=== PATIENT | male | born 1955 | race Caucasian/White ===

== ENCOUNTER → 2019-01-01 | Outpatient (CLI) | payer OTHER ==
[~2019-01-01] MED LIST: CIPR-245 PO; HYDR-653 PO; HYDR12.556 PO; LISI30TA49 PO
[2019-01-01 09:16] LABS: PLATELET COUNT, AUTOMATED 220 K/uL (150-450)
== END ==
LOC: LAB 08:56
PROVIDERS: ATTEND Surgery
DX: D47.3 Essential (hemorrhagic) thrombocythemia (principal); D72.829 Elevated white blood cell count, unspecified
CPT/HCPCS: 36415; 85025

== ENCOUNTER 2019-01-18 08:00 | Outpatient (RCR) | payer OTHER ==
[2018-11-10 08:53] VITALS: BP 134/87
--- NOTE | 2018-11-10 21:37 | [facility] ONCOLOGY NOTE ---
EVENT DATE: November 10, 2018 REFERRING PHYSICIAN Thu Roberts PA-C REASON FOR CONSULTATION Evaluation and management of leukocytosis with neutrophilia. HEMATOLOGY HISTORY The patient is a 63-year-old male who had gout, hypertension, a previous history of thrombocytosis and intermittent leukocytosis, and chronic fungal infection of the skin, especially of the lower extremities, sometimes the hand, treated before with antifungal treatment. Patient during his followup with his primary care physician was found to have a high white count. His CBC on the September showed white count 25.4, hemoglobin 14.3, hematocrit 44.4, platelets 460,000. Absolute neutrophil count was 21.8 while other differential counts were normal except for mild elevation of the absolute basophil at 0.5. There were a few atypical lymphocytes and some enucleated RBCs. Patient denies any constitutional symptoms. PAST MEDICAL HISTORY 1. Hypertension. 2. Gout. 3. Thrombocytosis. 4. Leukocytosis. PAST SURGICAL HISTORY 1. Gangrene removal from the right wrist. 2. Bone marrow biopsy 20 years ago for thrombocytosis and, as per patient, was benign. FAMILY HISTORY Paternal grandmother had pancreatic cancer. Mother had leukemia. Father had brain cancer. Paternal aunt had breast cancer. SOCIAL HISTORY Patient is with no children. 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 Denies any abuse of tobacco, but he smokes cannabis. He drinks occasionally, but was a heavy drinker in the past. CURRENT MEDICATIONS 1. Lisinopril 30 mg daily. 2. Hydrochlorothiazide 12.5 mg daily. ALLERGIES CIPRO which caused pain at the sites of old injuries in his bones REVIEW OF SYSTEMS CONSTITUTIONAL: No appetite or weight change. He has occasional chills. No fever or sweating. No recent infection. HEENT: Ears: No tinnitus or hearing problem. Nose: He has nasal discharge. No epistaxis. Throat: No sore throat or mouth ulcers. Eyes: No diplopia or visual changes. RESPIRATORY: He has cough with expectoration and shortness of breath. No hemoptysis. CARDIOVASCULAR: No chest pain, orthopnea, or paroxysmal nocturnal dyspnea (PND). No edema. No palpitations. GASTROINTESTINAL: No nausea or vomiting. He has occasional diarrhea. No constipation. No change in bowel movements. No heartburn or swallowing difficulties. No abdominal pain. No jaundice. No hematemesis, melena, or rectal bleeding. GENITOURINARY: He has increased frequency of urine. No hematuria or dysuria. MUSCULOSKELETAL: He has pain in the feet from his gout and left knee. NEUROLOGIC: He has numbness at the tip of the right index finger after previous infection and drainage in the past. No headaches or convulsions. HEMATOLOGIC/LYMPHATIC: No bleeding or easy bruising. He is weak, tired, and fatigued. No enlarged lymph nodes. SKIN: No skin rash or lumps. PSYCHIATRIC: No anxiety or depression. PHYSICAL EXAMINATION GENERAL: Looks stable. Well developed, well nourished, and in no acute distress. VITAL SIGNS: Blood pressure 134/87, pulse 97 per minute, respirations 16 per minute, temperature 97.9, pulse oximetry 98% on room air. HEENT: Head: Atraumatic. No sinus tenderness to palpation. Eyes: No icterus or conjunctivitis. Mouth and Throat: No oral thrush or mucositis. NECK: Supple. No cervical or supraclavicular lymphadenopathy. LUNGS: Clear to auscultation and percussion bilaterally. HEART: Regular rate and rhythm. No gallops, murmurs, clicks, or rubs. ABDOMEN: Soft and lax. No tenderness. No hepatosplenomegaly. No masses. EXTREMITIES: No cyanosis, clubbing, or edema. LYMPHATICS: No peripheral lymphadenopathy. NEUROLOGIC: Conscious, alert, and oriented times three. No focal motor or sensory deficits. PSYCHIATRIC: Mood and affect appear normal. SKIN: No skin rash, bruise, or purpuric eruption. ASSESSMENT Neutrophilic leukocytosis and thrombocytosis, most probably reactive in nature which could be due to his gout or chronic fungal infection. Myeloproliferative disorder cannot be ruled out. I am planning to check his CBC and Lab-score. I am planning also to check peripheral blood for flow cytometry. I will check also the parameters for inflammation including ESR, CRP, and fibrinogen level. I will consider bone marrow aspiration biopsy if indicated. I will see the patient after the results of those lab tests to decide about further management. PLAN 1. CBC. 2. Lab-score. 3. Flow cytometry of the peripheral blood. 4. Erythrocyte sedimentation rate. 5. C-reactive protein. 6. Fibrinogen level. 7. Patient to return after the above for further evaluation and management. 8. Patient to contact us for any new concerns or complaints. RAYMUNDO
[2018-11-22 08:25] VITALS: BP 114/89
[2018-11-22 08:51] LABS: PLATELET COUNT, AUTOMATED 299 K/uL (150-450)
[2018-12-01 10:35] VITALS: BP 125/85
--- NOTE | 2018-12-02 08:48 | [facility] ONCOLOGY NOTE ---
EVENT DATE: December 01, 2018 DIAGNOSES 1. Neutrophilic leukocytosis. 2. Thrombocytosis. CHIEF COMPLAINT Patient is here today for follow up of his neutrophilic leukocytosis and thrombocytosis. HEMATOLOGY HISTORY The patient is a 63-year-old male who had gout, hypertension, a previous history of thrombocytosis and intermittent leukocytosis, and chronic fungal infection of the skin, especially of the lower extremities, sometimes the hand, treated before with antifungal treatment. Patient during his followup with his primary care physician was found to have a high white count. His CBC on the September showed white count 25.4, hemoglobin 14.3, hematocrit 44.4, platelets 460,000. Absolute neutrophil count was 21.8 while other differential counts were normal except for mild elevation of the absolute basophil at 0.5. There were a few atypical lymphocytes and some enucleated RBCs. Patient denies any constitutional symptoms. Patient had repeat CBC which showed white count 24.5, hemoglobin 15.4, hematocrit 47.3, platelet 299,000 with 76% neutrophils. C-reactive protein mildly elevated at 1.3 but ESR is normal at 6. Vitamin B12 level was 806. Flow cytometry of the peripheral blood showed relative increase of phenotypically normal left shift in myeloid cells with slightly increased CD34 positive myeloid blast (0.6% of the leukocytes without flow cytometric evidence of lymphoproliferative disorder). Although not as specific, these results could also be myeloid neoplasm. HISTORY OF PRESENT ILLNESS Patient is here today for followup of his neutrophilic leukocytosis and thrombocytosis. The patient is complaining of nasal discharge and cough. He continues to have chronic recurrent fungal infection of the skin of the legs. PAST MEDICAL HISTORY 1. Hypertension. 2. Gout. 3. Thrombocytosis. 4. Leukocytosis. PAST SURGICAL HISTORY 1. Gangrene removal from the right wrist. 2. Bone marrow biopsy 20 years ago for thrombocytosis and, as per patient, was benign. FAMILY HISTORY Paternal grandmother had pancreatic cancer. Mother had leukemia. Father had brain cancer. Paternal aunt had breast cancer. SOCIAL HISTORY Patient is with no children. 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 Denies any abuse of tobacco, but he smokes cannabis. He drinks occasionally, but was a heavy drinker in the past. CURRENT MEDICATIONS 1. Lisinopril 30 mg daily. 2. Hydrochlorothiazide 12.5 mg daily. ALLERGIES CIPRO which caused pain at the sites of old injuries in his bones REVIEW OF SYSTEMS CONSTITUTIONAL: No appetite or weight change. He has occasional chills. No fever or sweating. No recent infection. HEENT: Ears: No tinnitus or hearing problem. Nose: He has nasal discharge. Throat: No sore throat or mouth ulcers. Eyes: No diplopia or visual changes. RESPIRATORY: He has cough. CARDIOVASCULAR: No chest pain, orthopnea, or paroxysmal nocturnal dyspnea (PND). No edema. No palpitations. GASTROINTESTINAL: No nausea or vomiting. He has occasional diarrhea. No constipation. No change in bowel movements. No heartburn or swallowing difficulties. No abdominal pain. No jaundice. No hematemesis, melena, or rectal bleeding. GENITOURINARY: He has increased frequency of urine. No hematuria or dysuria. MUSCULOSKELETAL: He has pain in the feet from his gout and left knee. NEUROLOGIC: He has numbness at the tip of the right index finger after previous infection and drainage in the past. No headaches or convulsions. HEMATOLOGIC/LYMPHATIC: No bleeding or easy bruising. He is weak, tired, and fatigued. No enlarged lymph nodes. SKIN: He continues to have recurrent fungal infection of his skin of the legs. PSYCHIATRIC: No anxiety or depression. PHYSICAL EXAMINATION GENERAL: Looks stable. Well developed, well nourished, and in no acute distress. VITAL SIGNS: Blood pressure 125/85, pulse 92 per minute, respirations 16 per minute, temperature 97.2, pulse oximetry 99% on room air. HEENT: Head: Atraumatic. No sinus tenderness to palpation. Eyes: No icterus or conjunctivitis. Mouth and Throat: No oral thrush or mucositis. NECK: Supple. No cervical or supraclavicular lymphadenopathy. LUNGS: Clear to auscultation and percussion bilaterally. HEART: Regular rate and rhythm. No gallops, murmurs, clicks, or rubs. ABDOMEN: Soft and lax. No tenderness. No hepatosplenomegaly. No masses. EXTREMITIES: No cyanosis, clubbing, or edema. LYMPHATICS: No peripheral lymphadenopathy. NEUROLOGIC: Conscious, alert, and oriented times three. No focal motor or sensory deficits. PSYCHIATRIC: Mood and affect appear normal. SKIN: No skin rash, bruise, or purpuric eruption. DIAGNOSTIC DATA CBC showed white count 24.5, hemoglobin 15.4, hematocrit 47.3, platelet 299,000 with 76% neutrophils. C-reactive protein is 1.3. B12 is 806. ESR is normal at 6. Flow cytometry of the peripheral blood showed relative increase of the phenotypically normal left shift in myeloid cells with a slightly increased CD34 positive myeloid blast (0.6% of the leukocytes with flow cytometric evidence of lymphoproliferative disorder). Although not specific, these results could be consistent with myeloid neoplasm. ASSESSMENT Neutrophilic leukocytosis and thrombocytosis, most probably reactive in nature due to his gout and chronic fungal infection of the skin of the legs. Myeloproliferative disorder cannot be ruled out. His flow cytometry of the peripheral blood showed relative increase of the phenotypically normal left shift in myeloid cells with slightly increased CD34 positive myeloid blast (0.6% of the leukocytes without flow cytometric evidence of lymphoproliferative disorder). Although not specific, these results could be consistent with myeloid neoplasm. I am planning to refer the patient to Dr. Verduzco for bone marrow biopsy under conscious sedation and we will see if the patient would have an underlying myeloid neoplasm. I will see the patient two weeks after his bone marrow biopsy for further evaluation and management and patient is agreeable with the plan of management. PLAN 1. Refer to Dr. Verduzco for bone marrow biopsy. 2. Patient to return two weeks after bone marrow biopsy for further evaluation and management. 3. Patient to contact us for any new concerns or complaints. RAYMUNDO
[2019-01-18 08:08] VITALS: BP 146/95
[2019-01-18] MEDS ORDERED: RUXO20TA PO (08:30)
--- NOTE | 2019-01-18 09:38 | [facility] ONCOLOGY NOTE ---
EVENT DATE: January 18, 2019 DIAGNOSES 1. Primary myelofibrosis. 2. Neutrophilic leukocytosis. 3. Thrombocytosis. CHIEF COMPLAINT Patient is here today for follow up of his neutrophilic leukocytosis and thrombocytosis and discuss the results of his bone marrow aspiration biopsy. HEMATOLOGY HISTORY The patient is a 63-year-old male who had gout, hypertension, a previous history of thrombocytosis and intermittent leukocytosis, and chronic fungal infection of the skin, especially of the lower extremities, sometimes the hand, treated before with antifungal treatment. Patient during his followup with his primary care physician was found to have a high white count. His CBC on the September showed white count 25.4, hemoglobin 14.3, hematocrit 44.4, platelets 460,000. Absolute neutrophil count was 21.8 while other differential counts were normal except for mild elevation of the absolute basophil at 0.5. There were a few atypical lymphocytes and some enucleated RBCs. Patient denies any constitutional symptoms. Patient had repeat CBC which showed white count 24.5, hemoglobin 15.4, hematocrit 47.3, platelet 299,000 with 76% neutrophils. C-reactive protein mildly elevated at 1.3 but ESR is normal at 6. Vitamin B12 level was 806. Flow cytometry of the peripheral blood showed relative increase of phenotypically normal left shift in myeloid cells with slightly increased CD34 positive myeloid blast (0.6% of the leukocytes without flow cytometric evidence of lymphoproliferative disorder). Although not as specific, these results could also be myeloid neoplasm. Bone marrow aspiration biopsy done on January 01, 2019, came back positive for myeloid neoplasm, favor primary myelofibrosis. There is moderate to marked reticulin fibrosis. 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 BCR-ABL by PCR was negative. Patient started treated with Jakafi on January 18, 2019. HISTORY OF PRESENT ILLNESS Patient is here today for followup of his neutrophilic leukocytosis and thrombocytosis and to discuss the results of his bone marrow done on January 01, 2019. He is complaining of some nasal discharge. He has occasional diarrhea. He has cough with expectoration. He has lower back pain due to chronic injury in the past. He has some tingling in his right index finger due to injury. He is weak, tired and fatigued. PAST MEDICAL HISTORY 1. Hypertension. 2. Gout. 3. Thrombocytosis. 4. Leukocytosis. PAST SURGICAL HISTORY 1. Gangrene removal from the right wrist. 2. Bone marrow biopsy 20 years ago for thrombocytosis and, as per patient, was benign. FAMILY HISTORY Paternal grandmother had pancreatic cancer. Mother had leukemia. Father had brain cancer. Paternal aunt had breast cancer. SOCIAL HISTORY Patient is with no children. 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 Denies any abuse of tobacco, but he smokes cannabis. He drinks occasionally, but was a heavy drinker in the past. CURRENT MEDICATIONS 1. Lisinopril 30 mg daily. 2. Hydrochlorothiazide 12.5 mg daily. 3. Jakafi 20 mg b.i.d. ALLERGIES CIPRO which caused pain at the sites of old injuries in his bones REVIEW OF SYSTEMS CONSTITUTIONAL: No appetite or weight change. He has occasional chills. No fever or sweating. No recent infection. HEENT: Ears: No tinnitus or hearing problem. Nose: He has nasal discharge. Throat: No sore throat or mouth ulcers. Eyes: No diplopia or visual changes. RESPIRATORY: He has cough with expectoration. CARDIOVASCULAR: No chest pain, orthopnea, or paroxysmal nocturnal dyspnea (PND). No edema. No palpitations. GASTROINTESTINAL: He has occasional diarrhea. GENITOURINARY: He has increased frequency of urine. No hematuria or dysuria. MUSCULOSKELETAL: He has low back pain due to chronic old injury. NEUROLOGIC: He has tingling in the right index finger due to old injury. HEMATOLOGIC/LYMPHATIC: He is weak, tired and fatigued. SKIN: He continues to have recurrent fungal infection of his skin of the legs. PSYCHIATRIC: No anxiety or depression. PHYSICAL EXAMINATION GENERAL: Looks stable. Well developed, well nourished, and in no acute distress. VITAL SIGNS: Blood pressure 146/95, pulse 83 per minute, respirations 16 per minute, temperature 96.8, pulse oximetry 98% on room air. HEENT: Head: Atraumatic. No sinus tenderness to palpation. Eyes: No icterus or conjunctivitis. Mouth and Throat: No oral thrush or mucositis. NECK: Supple. No cervical or supraclavicular lymphadenopathy. LUNGS: Clear to auscultation and percussion bilaterally. HEART: Regular rate and rhythm. No gallops, murmurs, clicks, or rubs. ABDOMEN: Spleen is palpable about five fingers below the left costal margin. EXTREMITIES: No cyanosis, clubbing, or edema. LYMPHATICS: No peripheral lymphadenopathy. NEUROLOGIC: Conscious, alert, and oriented times three. No focal motor or sensory deficits. PSYCHIATRIC: Mood and affect appear normal. SKIN: No skin rash, bruise, or purpuric eruption. DIAGNOSTIC DATA CBC showed white count 19,000, hemoglobin 14.8, hematocrit 45.5, platelet 220,000. C-reactive protein is 1.3. B12 was 806. Bone marrow aspiration biopsy done on January 01, 2019, came back positive for myeloid neoplasm,, favor primary myelofibrosis. There is moderate to marked reticulin fibrosis and JAK2 mutation analysis came back positive for V617F mutation with 70.4% mutant allele detected. ASSESSMENT 1. Primary myelofibrosis diagnosed by bone marrow aspiration biopsy done on January 01, 2019, which showed moderate to marked reticulin fibrosis and JAK2 mutation for V617F came back positive with 70.4% mutant allele detected. Patient initially presented with neutrophilic leukocytosis and thrombocytosis. His flow cytometry of the peripheral blood did reveal slightly increased CD34 positive myeloid blast (0.6% of the leukocytes) so the patient had bone marrow aspiration biopsy done on January 01, 2019, which led to the diagnosis of myeloid neoplasm, favor myelofibrosis. I am planning to start treatment with Jakafi as his platelet count is above 200,000, currently 220,000. I am planning to start treatment with Jakafi 20 mg daily. I will check his count every other week and I will see him one month from now. His spleen is palpable by more than five fingers below the left costal margin. Patient is aware of his disease and he will be seen in a month from now with CBC and chem panel. Consideration for bone marrow aspiration biopsy will be decided in the near future. PLAN 1. Jakafi 20 mg b.i.d. 2. CBC and chem panel to be checked every other week. 3. Patient to return in one month with CBC and chem panel. 4. Patient to contact us for any new concerns or complaints. [id number]
== END 2019-02-08 ==
LOC: ONC 08:00
PROVIDERS: ATTEND Internal Medicine Hematology
DX: D72.829 Elevated white blood cell count, unspecified (principal); I10 Essential (primary) hypertension; M10.9 Gout, unspecified; D69.6 Thrombocytopenia, unspecified; R53.83 Other fatigue; R19.7 Diarrhea, unspecified; R05 Cough; M54.5 Low back pain
CPT/HCPCS: 36415; 82607; 85025; 85384; 85540; 85651; 86140; 88184; 88185; 88189; 99202; 99212

== ENCOUNTER 2019-05-18 13:45 | Outpatient (RCR) | payer OTHER ==
[2019-02-26 08:48] VITALS: BP 112/87
[2019-02-26 09:02] LABS: PLATELET COUNT, AUTOMATED 91 K/uL (150-450)
[2019-03-02 09:36] VITALS: BP 118/79
--- NOTE | 2019-03-02 22:12 | EL-TAR[facility] ONCOLOGY NOTE ---
EVENT DATE: March 02, 2019 DIAGNOSES 1. Primary myelofibrosis. 2. Neutrophilic leukocytosis. 3. Thrombocytosis. CHIEF COMPLAINT Patient is here today for followup of his myelofibrosis on Jakafi treatment. HEMATOLOGY HISTORY The patient is a 63-year-old male who has gout, hypertension, a previous history of thrombocytosis, intermittent leukocytosis, and chronic fungal infection of the skin, especially of the lower extremities, sometimes the hand, treated before with antifungal treatment. Patient during his followup with his primary care physician was found to have a high white count. His CBC on the September showed white count 25.4, hemoglobin 14.3, hematocrit 44.4, platelets 460,000. Absolute neutrophil count was 21.8, while other differential counts were normal except for mild elevation of the absolute basophil at 0.5. There were a few atypical lymphocytes and some enucleated RBCs. Patient denies any constitutional symptoms. Patient had repeat CBC, which showed white count 24.5, hemoglobin 15.4, hematocrit 47.3, platelet 299,000, with 76% neutrophils. C-reactive protein was mildly elevated at 1.3, but ESR was normal at 6. Vitamin B12 level was 806. Flow cytometry of the peripheral blood showed relative increase of phenotypically normal left shift in myeloid cells with slightly increased CD34, positive myeloid blast (0.6% of the leukocytes without flow cytometric evidence of lymphoproliferative disorder). Although not as specific, these results could also be myeloid neoplasm. Bone marrow aspiration biopsy done on January 01, 2019, came back positive for myeloid neoplasm, favor primary myelofibrosis. There is moderate to marked reticulin fibrosis. 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 BCR-ABL by PCR was negative. Patient started treated with Jakafi on January 18, 2019. HISTORY OF PRESENT ILLNESS Patient is here today for followup of his primary myelofibrosis on Jakafi therapy. His constitutional symptoms are getting better after starting Jakafi. His night sweats are getting better. He has some nasal discharge. He is short- winded sometimes. He has occasional nausea for a day or two sometimes, and he has easy bruising, but denies any bleeding. PAST MEDICAL HISTORY 1. Hypertension. 2. Gout. 3. Thrombocytosis. 4. Leukocytosis. PAST SURGICAL HISTORY 1. Gangrene removal from the right wrist. 2. Bone marrow biopsy 20 years ago for thrombocytosis and, as per patient, was benign. FAMILY HISTORY Paternal grandmother had pancreatic cancer. Mother had leukemia. Father had brain cancer. Paternal aunt had breast cancer. SOCIAL HISTORY Patient is with no children. 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 Denies any abuse of tobacco, but he smokes cannabis. He drinks occasionally, but was a heavy drinker in the past. CURRENT MEDICATIONS 1. Lisinopril 30 mg daily. 2. Hydrochlorothiazide 12.5 mg daily. 3. Jakafi 10 mg b.i.d. ALLERGIES CIPRO which caused pain at the sites of old injuries in his bones REVIEW OF SYSTEMS CONSTITUTIONAL: His constitutional symptoms of night sweating are getting better. No appetite or weight change. No fever or chills. No recent infection. HEENT: Ears: No tinnitus or hearing problem. Nose: He has some nasal discharge. No epistaxis. Throat: No sore throat or mouth ulcers. Eyes: No diplopia or visual changes. RESPIRATORY: He has exertional shortness of breath. No cough, expectoration, or hemoptysis. CARDIOVASCULAR: No chest pain, orthopnea, or paroxysmal nocturnal dyspnea (PND). No edema. No palpitations. GASTROINTESTINAL: He has occasional nausea. No vomiting. No diarrhea or constipation. No change in bowel movements. No heartburn or swallowing difficulties. No abdominal pain. No jaundice. No hematemesis, melena, or rectal bleeding. GENITOURINARY: No hematuria or dysuria. MUSCULOSKELETAL: No pain in the muscles, joints, or bones. NEUROLOGIC: No tingling or numbness in the hands or feet. No headaches or convulsions. HEMATOLOGIC/LYMPHATIC: No bleeding. He bruises easily. No weakness or fatigue. No enlarged lymph nodes. SKIN: No skin rash or lumps. PSYCHIATRIC: No anxiety or depression. PHYSICAL EXAMINATION GENERAL: Looks stable. Well developed, well nourished, and in no acute distress. VITAL SIGNS: Blood pressure 118/79, pulse 89 per minute, respirations 16 per minute, temperature 99.4, pulse ox 98% on room air. HEENT: Head: Atraumatic. No sinus tenderness to palpation. Eyes: No icterus or conjunctivitis. Mouth and Throat: No oral thrush or mucositis. NECK: Supple. No cervical or supraclavicular lymphadenopathy. LUNGS: Clear to auscultation and percussion bilaterally. HEART: Regular rate and rhythm. No gallops, murmurs, clicks, or rubs. ABDOMEN: Soft and lax. No tenderness. No hepatomegaly. The spleen is palpable below the left costal margin. No masses. EXTREMITIES: No cyanosis, clubbing, or edema. LYMPHATICS: No peripheral lymphadenopathy. NEUROLOGIC: Conscious, alert, and oriented times three. No focal motor or sensory deficits. PSYCHIATRIC: Mood and affect appear normal. SKIN: No skin rash, bruise, or purpuric eruption. DIAGNOSTIC DATA CBC showed white count 14.9, hemoglobin 12.8, hematocrit 38, platelet count 91,000. Chem panel totally normal except sodium 129, chloride 97, carbon dioxide 19, AST 66, alkaline phosphatase 183. ASSESSMENT Primary myelofibrosis diagnosed by bone marrow aspiration biopsy done January 01, 2019, which showed moderate to marked reticulin fibrosis, and JAK2 mutation for V617F came back positive for 70.4% mutant allele detected. Patient initially presented with neutrophilic leukocytosis and thrombocytosis. Flow cytometry of the peripheral blood did reveal slightly increased [id number] myeloid blasts (0.6% of the leukocytes), so the patient had bone marrow aspiration biopsy done on January 01, 2019, which led to the diagnosis of myeloid neoplasm, favor myelofibrosis. Patient started treatment with Jakafi 20 mg twice daily as his platelet count was 220,000, above 200,000, but his platelet count currently is 91,000. I am planning to decrease the dose of Jakafi from 20 mg twice daily to 10 mg twice daily. I am planning to check his count again in two weeks, and I will see him in four weeks with CBC and chemistry panel at that time. I talked to the patient briefly today that I may get him an appointment with the [facility] at [facility] to consider a bone marrow transplant in the future if indicated. PLAN 1. Jakafi 10 mg b.i.d. 2. CBC and chem panel to be checked every two weeks. 3. Patient to return in four weeks with CBC and chem panel. 4. Patient to contact us for any new concerns or complaints. [facility]
[2019-03-16 08:48] LABS: PLATELET COUNT, AUTOMATED 127 K/uL (150-450)
[2019-03-16 08:49] VITALS: BP 135/92
[2019-03-16 08:52] VITALS: BP 131/99
[2019-04-06 09:24] VITALS: BP 127/72
[2019-04-06 09:41] LABS: PLATELET COUNT, AUTOMATED 166 K/uL (150-450)
[2019-04-13 08:55] VITALS: BP 138/87
--- NOTE | 2019-04-13 15:43 | ONCOLOGY FOLLOW UP NOTE ---
EVENT DATE: April 13, 2019 DIAGNOSES 1. Primary myelofibrosis. 2. Neutrophilic leukocytosis. 3. Thrombocytosis. CHIEF COMPLAINT Patient is here today for followup of his myelofibrosis on Jakafi treatment. HEMATOLOGY HISTORY The patient is a 63-year-old male who has gout, hypertension, a previous history of thrombocytosis, intermittent leukocytosis, and chronic fungal infection of the skin, especially of the lower extremities, sometimes the hand, treated before with antifungal treatment. Patient during his followup with his primary care physician was found to have a high white count. His CBC on the September showed white count 25.4, hemoglobin 14.3, hematocrit 44.4, platelets 460,000. Absolute neutrophil count was 21.8, while other differential counts were normal except for mild elevation of the absolute basophil at 0.5. There were a few atypical lymphocytes and some enucleated RBCs. Patient denies any constitutional symptoms. Patient had repeat CBC, which showed white count 24.5, hemoglobin 15.4, hematocrit 47.3, platelet 299,000, with 76% neutrophils. C-reactive protein was mildly elevated at 1.3, but ESR was normal at 6. Vitamin B12 level was 806. Flow cytometry of the peripheral blood showed relative increase of phenotypically normal left shift in myeloid cells with slightly increased CD34, positive myeloid blast (0.6% of the leukocytes without flow cytometric evidence of lymphoproliferative disorder). Although not as specific, these results could also be myeloid neoplasm. Bone marrow aspiration biopsy done on January 01, 2019, came back positive for myeloid neoplasm, favor primary myelofibrosis. There is moderate to marked reticulin fibrosis. 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 BCR-ABL by PCR was negative. Patient started treated with Jakafi on January 18, 2019. HISTORY OF PRESENT ILLNESS Patient is here today for followup of his myelofibrosis on Jakafi therapy. He is doing fine currently. Denies any constitutional symptoms. He has exertional shortness of breath sometimes. He bruises easily, but other than that, he is really doing very well. PAST MEDICAL HISTORY 1. Hypertension. 2. Gout. 3. Thrombocytosis. 4. Leukocytosis. PAST SURGICAL HISTORY 1. Gangrene removal from the right wrist. 2. Bone marrow biopsy 20 years ago for thrombocytosis and, as per patient, was benign. SOCIAL HISTORY Patient is with no children. 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 Denies any abuse of tobacco, but he smokes cannabis. He drinks occasionally, but was a heavy drinker in the past. FAMILY HISTORY Paternal grandmother had pancreatic cancer. Mother had leukemia. Father had brain cancer. Paternal aunt had breast cancer. CURRENT MEDICATIONS 1. Lisinopril 30 mg daily. 2. Hydrochlorothiazide 12.5 mg daily. 3. Jakafi 10 mg b.i.d. ALLERGIES CIPRO which caused pain at the sites of old injuries in his bones REVIEW OF SYSTEMS CONSTITUTIONAL: No appetite or weight change. No fever, chills, or sweating. No recent infection. HEENT: Ears: No tinnitus or hearing problem. Nose: No nasal discharge or epistaxis. Throat: No sore throat or mouth ulcers. Eyes: No diplopia or visual changes. RESPIRATORY: He has exertional shortness of breath. No cough, expectoration, or hemoptysis. CARDIOVASCULAR: No chest pain, orthopnea, or paroxysmal nocturnal dyspnea (PND). No edema. No palpitations. GASTROINTESTINAL: No nausea or vomiting. No diarrhea or constipation. No change in bowel movements. No heartburn or swallowing difficulties. No abdominal pain. No jaundice. No hematemesis, melena, or rectal bleeding. GENITOURINARY: No hematuria or dysuria. MUSCULOSKELETAL: No pain in the muscles, joints, or bones. NEUROLOGIC: No tingling or numbness in the hands or feet. No headaches or convulsions. HEMATOLOGIC/LYMPHATIC: No bleeding. He bruises easily. No weakness or fatigue. No enlarged lymph nodes. SKIN: No skin rash or lumps. PSYCHIATRIC: No anxiety or depression. PHYSICAL EXAMINATION GENERAL: Looks stable. Well developed, well nourished, and in no acute distress. VITAL SIGNS: Blood pressure 138/87, pulse 95 per minute, respirations 16 per minute, temperature 97.2, pulse ox 97% on room air. HEENT: Head: Atraumatic. No sinus tenderness to palpation. Eyes: No icterus or conjunctivitis. Mouth and Throat: No oral thrush or mucositis. NECK: Supple. No cervical or supraclavicular lymphadenopathy. LUNGS: Clear to auscultation and percussion bilaterally. HEART: Regular rate and rhythm. No gallops, murmurs, clicks, or rubs. ABDOMEN: Soft and lax. No tenderness. No hepatosplenomegaly. No masses. EXTREMITIES: No cyanosis, clubbing, or edema. LYMPHATICS: No peripheral lymphadenopathy. NEUROLOGIC: Conscious, alert, and oriented times three. No focal motor or sensory deficits. PSYCHIATRIC: Mood and affect appear normal. SKIN: No skin rash, bruise, or purpuric eruption. DIAGNOSTIC DATA CBC showed white count 16,000, hemoglobin 10.4, hematocrit 31.4, platelets 166,000. Chem panel totally normal except sodium 135 and AST 36. ASSESSMENT Primary myelofibrosis diagnosed by bone marrow aspiration biopsy done January 01, 2019, which showed moderate to marked reticulin fibrosis, and JAK2 mutation for V617F came back positive for 70.4% mutant allele detected. Patient initially presented with neutrophilic leukocytosis and thrombocytosis. Flow cytometry of the peripheral blood revealed slightly increased [id number] myeloid blasts, 0.6% of the leukocytes, so the patient had bone marrow aspiration biopsy done on January 01, 2019, which led to the diagnosis of myeloid neoplasm, favor myelofibrosis. Patient started treatment with Jakafi 20 mg twice daily, but his platelet count dropped from 220,000 to 91,000, so the patient had a modification of the dose of Jakafi and currently on 10 mg twice daily. His platelet count is normal at 166,000. His white count is high at 16,000, and hemoglobin is 10.4 g/dL. Patient is doing fine. Denies any constitutional symptoms currently. He has exertional shortness of breath and easy bruising, but other than that, he is really doing very well. I am planning to refer him to the bone marrow transplant at [facility] for evaluation of possible bone marrow transplant for his disease. PLAN 1. Jakafi 10 mg b.i.d. 2. Referral to Bone Marrow Transplant Center at [facility]. 3. Patient to return in one month with CBC, chem panel, uric acid, LDH. 4. Patient to contact us for any new concern or complaints. [facility]
[2019-05-16 12:00] LABS: PLATELET COUNT, AUTOMATED 140 K/uL (150-450)
[2019-05-16 13:41] VITALS: BP 117/66
[~2019-05-18 13:45] MED LIST changes: +FLUT16SP19 NS; +RUXO20TA PO
[2019-05-18 14:01] VITALS: BP 126/83
[2019-05-18] MEDS ORDERED: ALLOPURINOL PO (14:32)
--- NOTE | 2019-05-18 16:43 | ONCOLOGY FOLLOW UP NOTE ---
EVENT DATE: May 18, 2019 DIAGNOSES 1. Primary myelofibrosis. 2. Neutrophilic leukocytosis. 3. Thrombocytosis. CHIEF COMPLAINT Patient is here today for followup of his myelofibrosis on Jakafi treatment. HEMATOLOGY HISTORY The patient is a 63-year-old male who has gout, hypertension, a previous history of thrombocytosis, intermittent leukocytosis, and chronic fungal infection of the skin, especially of the lower extremities, sometimes the hand, treated before with antifungal treatment. Patient during his followup with his primary care physician was found to have a high white count. His CBC on the September showed white count 25.4, hemoglobin 14.3, hematocrit 44.4, platelets 460,000. Absolute neutrophil count was 21.8, while other differential counts were normal except for mild elevation of the absolute basophil at 0.5. There were a few atypical lymphocytes and some enucleated RBCs. Patient denies any constitutional symptoms. Patient had repeat CBC, which showed white count 24.5, hemoglobin 15.4, hematocrit 47.3, platelet 299,000, with 76% neutrophils. C-reactive protein was mildly elevated at 1.3, but ESR was normal at 6. Vitamin B12 level was 806. Flow cytometry of the peripheral blood showed relative increase of phenotypically normal left shift in myeloid cells with slightly increased CD34, positive myeloid blast (0.6% of the leukocytes without flow cytometric evidence of lymphoproliferative disorder). Although not as specific, these results could also be myeloid neoplasm. Bone marrow aspiration biopsy done on January 01, 2019, came back positive for myeloid neoplasm, favor primary myelofibrosis. There is moderate to marked reticulin fibrosis. 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 BCR-ABL by PCR was negative. Patient started treated with Jakafi on January 18, 2019. HISTORY OF PRESENT ILLNESS Patient is here today for followup of his myelofibrosis on Jakafi therapy. He is feeling better on Jakafi treatment. His appetite is getting better. He has some nasal discharge. He has occasional diarrhea. He has also exertional shortness of breath. He has some fatigue, and he bruises easily. PAST MEDICAL HISTORY 1. Hypertension. 2. Gout. 3. Thrombocytosis. 4. Leukocytosis. PAST SURGICAL HISTORY 1. Gangrene removal from the right wrist. 2. Bone marrow biopsy 20 years ago for thrombocytosis and, as per patient, was benign. SOCIAL HISTORY Patient is with no children. 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 Denies any abuse of tobacco, but he smokes cannabis. He drinks occasionally, but was a heavy drinker in the past. FAMILY HISTORY Paternal grandmother had pancreatic cancer. Mother had leukemia. Father had brain cancer. Paternal aunt had breast cancer. CURRENT MEDICATIONS 1. Lisinopril 30 mg daily. 2. Hydrochlorothiazide 12.5 mg daily. 3. Jakafi 10 mg b.i.d. ALLERGIES CIPRO which caused pain at the sites of old injuries in his bones REVIEW OF SYSTEMS CONSTITUTIONAL: He has a better appetite. No fever, chills, or sweating. No recent infection. HEENT: Ears: No tinnitus or hearing problem. Nose: He has nasal discharge. No epistaxis. Throat: No sore throat or mouth ulcers. Eyes: No diplopia or visual changes. RESPIRATORY: He has exertional shortness of breath. No cough, expectoration, or hemoptysis. CARDIOVASCULAR: No chest pain, orthopnea, or paroxysmal nocturnal dyspnea (PND). No edema. No palpitations. GASTROINTESTINAL: No nausea or vomiting. He has occasional diarrhea. No constipation. No change in bowel movements. No heartburn or swallowing difficulties. No abdominal pain. No jaundice. No hematemesis, melena, or rectal bleeding. GENITOURINARY: No hematuria or dysuria. MUSCULOSKELETAL: No pain in the muscles, joints, or bones. NEUROLOGIC: No tingling or numbness in the hands or feet. No headaches or convulsions. HEMATOLOGIC/LYMPHATIC: No bleeding. He bruises easily. He is weak, tired, and fatigued. No enlarged lymph nodes. SKIN: No skin rash or lumps. PSYCHIATRIC: No anxiety or depression. PHYSICAL EXAMINATION GENERAL: Looks stable. Well developed, well nourished, and in no acute distress. VITAL SIGNS: Blood pressure 126/83, pulse 97 per minute, respirations 16 per minute, temperature 98, pulse ox 97% on room air. HEENT: Head: Atraumatic. No sinus tenderness to palpation. Eyes: No icterus or conjunctivitis. Mouth and Throat: No oral thrush or mucositis. NECK: Supple. No cervical or supraclavicular lymphadenopathy. LUNGS: Clear to auscultation and percussion bilaterally. HEART: Regular rate and rhythm. No gallops, murmurs, clicks, or rubs. ABDOMEN: Soft and lax. No tenderness. No hepatosplenomegaly. No masses. EXTREMITIES: No cyanosis, clubbing, or edema. LYMPHATICS: No peripheral lymphadenopathy. NEUROLOGIC: Conscious, alert, and oriented times three. No focal motor or sensory deficits. PSYCHIATRIC: Mood and affect appear normal. SKIN: No skin rash, bruise, or purpuric eruption. DIAGNOSTIC DATA CBC showed white count 13.2, hemoglobin 10.6, hematocrit 30.9, platelets 140,000. Creatinine 1.3. Uric acid 10.3. LDH 929. ANC 10.1. ASSESSMENT 1. Primary myelofibrosis diagnosed by bone marrow aspiration biopsy done January 01, 2019, which showed moderate to marked reticulin fibrosis, and JAK2 mutation for V617F came back positive for 70.4% mutant allele detected. Patient initially presented with neutrophilic leukocytosis and thrombocytosis. Flow cytometry of the peripheral blood revealed slightly increased [id number] myeloid blasts 0.6% of the leukocytes, so the patient had a bone marrow aspiration biopsy done on January 01, 2019, which led to the diagnosis of myeloid neoplasm, favor myelofibrosis. Patient started treatment with Jakafi 20 mg twice daily, but his platelet count dropped from 220,000 to 91,000, so the patient had a modification of the dose to 10 mg of Jakafi twice daily. His current platelet count is reasonable at 140,000, but his hemoglobin is 10.6 g/dL, and his white count is 13.2. I am planning to continue the same dose of Jakafi. I will see him again in two months with CBC, chemistry panel, LDH, and uric acid. Patient has been evaluated by Dr. Spangler at the [facility] with recommendation of continuing same treatment at the moment and to check his siblings to see if there is any matching donor for a future bone marrow transplant when it is needed. 2. Hyperuricemia. Currently uric acid 10.3. I am planning to start allopurinol 200 mg daily. PLAN 1. Continue Jakafi 10 mg twice daily. 2. Patient to return in two months with CBC, chem panel, LDH, and uric acid. 3. Allopurinol 200 mg daily. 4. Patient to contact us for any new concern or complaints. [facility]
== END 2019-05-24 ==
LOC: ONC 13:45
PROVIDERS: ATTEND Internal Medicine Hematology
DX: D47.1 Chronic myeloproliferative disease (principal); D72.828 Other elevated white blood cell count; D47.3 Essential (hemorrhagic) thrombocythemia; Z15.89 Genetic susceptibility to other disease; I10 Essential (primary) hypertension; R06.02 Shortness of breath
CPT/HCPCS: 36415; 82040; 82247; 82310; 82374; 82435; 82565; 82947; 83615; 84075; 84132; 84155; 84295; 84450; 84460; 84520; 84550; 85025; 99212